=== PATIENT | male | born 1940 | race Caucasian/White ===

== ENCOUNTER → 2018-01-12 | Outpatient (CLI) | payer OTHER ==
[~2018-01-12] MED LIST: CENTRUM SILVER1 EAC3 PO; CIPRO500 MG PO; FLONASE16 G1 BOTH NARES; FLOVENT DISKUS1 DIS2 IH; LO-DOSE ASPIRIN81 M2 PO; MOBIC7.5 MG PO; PRILOSEC OTC20 MG PO; PRILOSEC20 MG PO; SPIRIVA1 INHALATI IH; SYMBICORT60 INHALA1 IH; VENTOLIN HFA18 GM IH; VITAMIN D31000 UNIT PO; ZANTAC150 MG PO; ZOCOR40 MG PO; ZOCOR80 MG PO
== END | disposition home or self-care (01) ==
LOC: NUC 01-11 08:30
DX: R68.81 Early satiety (principal)
CPT/HCPCS: 78264; A9541